=== PATIENT | male | born 1995 | race Caucasian/White ===

== ENCOUNTER 2019-08-08 16:37 | Observation (INO) ==
--- NOTE | 2019-08-08 16:57 | XRay Report ---
CLINICAL INFORMATION:Dyspnea TECHNIQUE: PA and lateral upright chest x-ray COMPARISON: None FINDINGS:Lungs are negative. No parenchymal infiltrate or mass. No focal abnormality. Heart size and vascularity are normal. Erica and mediastinum are negative. There is no pleural fluid. Thoracic spine is negative. No compression deformities. IMPRESSION: Negative PA and lateral chest x-ray Interpreted and Authenticated by: Neo Regan 08/08/19
--- NOTE | 2019-08-08 17:14 | Emergency Department Note ---
General Adult HPI - General Chief complaint: Shortness of Breath/Dyspnea Stated complaint: SOB Time Seen by Provider: 08/08/19 16:58 Source: patient, family Mode of arrival: wheelchair Limitations: no limitations - History of Present Illness HPI Narrative: 24-year-old with feeling short of breath and pain in the diaphragm area. He felt lightheaded. He is feeling tingling in his fingertips and face it seems to be escalating and going up his face towards his eyes. He does not feel stressed out or anxious. He has not felt well today and even did not go to work because he did not feel well. He had nausea earlier but some less now. He feels a tigh tness in the low chest. No paresthesias of the lower extremities. No history of motor vehicle accidents. He has had some lower thoracic left-sided pain that is been longer in all day now worsening. It does seem to occur about the same time as his abdomen although is not particularly certain of this. This is a little different and his history of right-sided back pain that was a little higher. He has felt some hot chills and sweats today but no fevers. REVIEW OF SYSTEMS: No sore throat, runny nose, nasal congestion, chest pain. May be a few palpitations when his pain is increasing. No cough or wheezing but feels short of breath with the pain. No vomiting, diarrhea, constipation, hematochezia, melena No dysuria or frequency No rashes No headache. Feels generally weak in his torso. Some mild lightheadedness dizziness as well. - Related Data Home Medications Medication Instructions Recorded Confirmed Dextroamphetamine/Amphetamine 20 mg PO BID 08/08/19 08/08/19 [Adderall 20 mg Tablet] Allergies Allergy/AdvReac Type Severity Reaction Status Date / Time No Known Drug Allergies Allergy Verified 08/08/19 16:37 Past Medical History - Past Medical History Medical history: Reports: other (DENIES: scarlet fever, Rheumatic fever). Denies: asthma, chronic anticoagulation, chronic narcotics, hypertension, hyp othyroidism, migraine, pneumonia, seizures Psychiatric history: Denies: depression Surgical history ED: Reports: orthopedic, other (Right ankle due to spinal fracture requiring a plate for repair) Family history: Denies: CAD/AL, diabetes - Social History smoking status: Current every day smoker (Half pack per day) Alcohol use: Reports: Occasionally (Few per week) Drug use: Reports: none, marijuana (Once a week) Physical Exam Limitations: no limitations General appearance: alert, anxious (Seemed quite anxious and panting breathing initially.), in distress, tearful (Initially) Head: atraumatic, normocephalic Eye: Present: EOMI ENT: Present: mucous membranes moist Neck: Present: trachea midline Chest: Present: symmetric chest wall rise Respiratory: Present: normal lung sounds bilaterally. Absent: respiratory dis tress, wheezes, stridor, accessory muscle use, prolonged expiratory phase Cardiovascular: Present: regular rate, normal rhythm. Absent: systolic murmur, diastolic murmur Abdominal: Present: soft, tenderness, guarding. Absent: distention, rebound, r igidity, organomegaly, mass Abdominal tenderness: Present: RUQ, LLQ, epigastrium, moderate, other (Some mild discomfort in the mid and lower left abdomen) Extremities: Absent: pedal edema, pretibial edema, calf tenderness Back: Absent: CVA tenderness (R), CVA tenderness (L), spinous process tenderness Neurological: Present: alert, oriented X3 Psychiatric: Present: normal affect, normal mood Skin: Present: diaphoretic Course Vital Signs Temperature 96.9 F L 08/08/19 16:38 Pulse Rate 70 08/08/19 16:38 Respiratory Rate 22 08/08/19 16:38 Blood Pressure 177/95 08/08/19 16:38 Pulse Oximetry (%) 100 08/08/19 16:38 Temperature 96.9 F L 08/08/19 16:38 Pulse Rate 55 L 08/08/19 17:42 Respiratory Rate 22 08/08/19 17:06 Blood Pressure 177/95 08/08/19 16:38 Pulse Oximetry (%) 96 08/08/19 17:42 Medical Decision Making - [facility] Narrative Medical decision making narrative: 4:58 PM - interviewed and examined. Diaphoretic back pain upper abdominal pain with some paresthesias. He may have gallbladder disease with hyperventilation or other. EKG unremarkable. Multiple labs and ultrasound abdomen limited and 2 view chest. 5:47 PM - preliminary gallbladder/abdominal ultrasound demonstrates a stone 1.4 cm low in the gallbladder neck. Gallbladder wall is mildly thickened. There is some fluid around the gallbladder. Varner sign however was negative. 6:04 PM - WBC 12.2, calcium mildly elevated at 10.9. Liver function test mildly elevated at 41 and 65 for the AST and ALT. CRP normal at less than 0.3. Lipase 27 total protein is 8.6. 6:13 PM - I just finished talking with Dr. Shane Levin, general surgeon who agrees that this most likely is gallbladder and will see him either later today or first thing in the morning. We will write admission orders for n.p.o. after midnight, pain control, IV fluids, Zosyn for antibiotic coverage. 6:25 PM - chest x-ray is negative. I recently spoke with Dr. Shane Levin, general surgeon, who kindly accepts this patient for general surgical care for presumptive diagnosis of acute cholecystitis. Transition orders for above written for. - Lab Data Lab results reviewed: Yes I reviewed the patient's lab results. Result diagrams: 08/08/19 16:49 08/08/19 16:49 Lab Results 08/08/19 08/08/19 08/08/19 Range/Units 16:49 16:49 16:49 WBC 12.1 H (4.5-11.0) K/mcL RBC 5.54 (4.50-5.90) M/mcL Hgb 17.7 H (13.5-16.5) g/dL Hct 51.1 (41.0-55.0) % MCV 92.1 (80.0-100.0) fL MCH 31.9 (26.0-34.0) pg MCHC 34.7 (31.0-36.0) g/dL RDW 12.9 (11.5-14.5) % Plt Count 305 (140-440) K/mcL MPV 7.6 (7.4-10.4) fL Gran % 76.0 (38.0-78.0) % Lymph % (Auto) 13.9 L (15.5-49.0) % Weston % (Auto) 5.8 (1.0-12.0) % Eos % (Auto) 4.1 (0.0-7.0) % Baso % (Auto) 0.2 (0.0-2.0) % Gran # 9.2 H (1.8-8.0) K/mcL Lymph # (Auto) 1.7 (1.5-4.8) K/mcL Weston # (Auto) 0.7 (0.1-0.9) K/mcL Eos # (Auto) 0.5 (0.0-0.7) K/mcL Baso # (Auto) 0 (0.0-0.3) K/mcL VBG Lactic Acid (0.5-2.0) mmol/L Sodium 139 (133-145) mmol/L Potassium 3.4 (3.3-5.1) mmol/L Chloride 97 (96-108) mmol/L Carbon Dioxide 22 (22-30) mmol/L Anion Gap 20.0 H (8-16) BUN 9 (6-20) mg/dl Creatinine 0.8 (0.7-1.2) mg/dl GFR Calculation 123 Glucose 122 H (70-105) mg/dL Calcium 10.9 H (8.6-10.4) mg/dl Total Bilirubin 0.9 (0.0-1.0) mg/dL AST 41 H (0-37) U/l ALT 65 H (0-40) U/l Alkaline Phosphatase 96 (39-117) U/L C-Reactive Protein < 0.3 (0.0-0.8) mg/dl Total Protein 8.6 H (5.9-8.4) gm/dL Albumin 5.2 (3.2-5.2) gm/dL Globulin 3.4 (2.2-3.7) gm/dL Albumin/Globulin Ratio 1.5 (1.0-2.3) Lipase 27 (7-60) U/L 08/08/19 Range/Units 17:28 WBC (4.5-11.0) K/mcL RBC (4.50-5.90) M/mcL Hgb (13.5-16.5) g/dL Hct (41.0-55.0) % MCV (80.0-100.0) fL MCH (26.0-34.0) pg MCHC (31.0-36.0) g/dL RDW (11.5-14.5) % Plt Count (140-440) K/mcL MPV (7.4-10.4) fL Gran % (38.0-78.0) % Lymph % (Auto) (15.5-49.0) % Weston % (Auto) (1.0-12.0) % Eos % (Auto) (0.0-7.0) % Baso % (Auto) (0.0-2.0) % Gran # (1.8-8.0) K/mcL Lymph # (Auto) (1.5-4.8) K/mcL Weston # (Auto) (0.1-0.9) K/mcL Eos # (Auto) (0.0-0.7) K/mcL Baso # (Auto) (0.0-0.3) K/mcL VBG Lactic Acid 2.8 H (0.5-2.0) mmol/L Sodium (133-145) mmol/L Potassium (3.3-5.1) mmol/L Chloride (96-108) mmol/L Carbon Dioxide (22-30) mmol/L Anion Gap (8-16) BUN (6-20) mg/dl Creatinine (0.7-1.2) mg/dl GFR Calculation Glucose (70-105) mg/dL Calcium (8.6-10.4) mg/dl Total Bilirubin (0.0-1.0) mg/dL AST (0-37) U/l ALT (0-40) U/l Alkaline Phosphatase (39-117) U/L C-Reactive Protein (0.0-0.8) mg/dl Total Protein (5.9-8.4) gm/dL Albumin (3.2-5.2) gm/dL Globulin (2.2-3.7) gm/dL Albumin/Globulin Ratio (1.0-2.3) Lipase (7-60) U/L - Radiology Data Radiology results reviewed: Yes I reviewed the patient's radiology results. Disposition Pt seen by DIRECTOR TARGETED MARKETING/PA only: No Clinical Impression: Acute cholecystitis, Elevated LFTs Cholelithiases Qualifiers: Cholelithiasis location: gallbladder Cholecystitis presence: with cholecystitis Cholecystitis acuity: acute Biliary obstruction: without biliary obstruction Qualified Code(s): K80.00 - Calculus of gallbladder with acute cholecystitis without obstruction Summary: See "MEDICAL DECISION MAKING" above. Disposition: Xfer As Outpt/Obs ([facility]) Condition: Good Referrals: Sukhjinder Garcia DO [Primary Care Provider] -
[2019-08-08 17:15] LABS: Basophils # (Auto) 0 K/mcL (0.0-0.3); Basophils % (Auto) 0.2 % (0.0-2.0); Eosinophils # (Auto) 0.5 K/mcL (0.0-0.7); Eosinophils % (Auto) 4.1 % (0.0-7.0); Hematocrit 51.1 % (41.0-55.0); Hemoglobin 17.7 g/dL (13.5-16.5); Lymphocytes # (Auto) 1.7 K/mcL (1.5-4.8); Lymphocytes % (Auto) 13.9 % (15.5-49.0); Mean Cell Volume 92.1 fL (80.0-100.0); Mean Corpuscular HGB Conc 34.7 g/dL (31.0-36.0); Mean Platelet Volume 7.6 fL (7.4-10.4); Monocytes # (Auto) 0.7 K/mcL (0.1-0.9); Monocytes % (Auto) 5.8 % (1.0-12.0); Platelet Count 305 K/mcL (140-440); RBC 5.54 M/mcL (4.50-5.90); Red Cell Distribution Width 12.9 % (11.5-14.5); WBC 12.1 K/mcL (4.5-11.0)
[2019-08-08] MEDS ORDERED: LACTATED RINGERS 1,000 ML IV ONE (17:28)
[2019-08-08 17:38] LABS: ALT/SGPT 65 U/l (0-40); AST/SGOT 41 U/l (0-37); Albumin 5.2 gm/dL (3.2-5.2); Albumin/Globulin Ratio 1.5 (1.0-2.3); Alkaline Phosphatase 96 U/L (39-117); Bilirubin,Total 0.9 mg/dL (0.0-1.0); Blood Urea Nitrogen 9 mg/dl (6-20); Calcium 10.9 mg/dl (8.6-10.4); Carbon Dioxide 22 mmol/L (22-30); Chloride 97 mmol/L (96-108); Globulin 3.4 gm/dL (2.2-3.7); Glomerular Filtration Rate 123; Glucose 122 mg/dL (70-105)
[2019-08-08 17:46] LABS: C-Reactive Protein < 0.3 mg/dl (0.0-0.8)
--- NOTE | 2019-08-08 18:05 | Ultrasound Report ---
CLINICAL INFORMATION: Upper abdominal pain TECHNIQUE: Grayscale and color flow Doppler spectral imaging COMPARISON: None. FINDINGS: Abnormal gallbladder. There is a stone within the gallbladder neck. This appears to be impacted and does not move with changes in position. This calculus measures 1.1 cm. No other gallstones identified. Gallbladder wall measures 4 mm. There is minimal pericholecystic fluid. Appearance is consistent with impacted stone cholecystitis. Patient did not, however, seen tender when scanned over the gallbladder lumen. There is no positive Varner's sign. No dilated bile ducts. Common bile duct measures 4 mm. Negative liver. No focal intrahepatic abnormality. Liver contour is smooth. Visualized portions of the pancreas are negative. Right kidney measures 11.8 x 5.0 x 4.7 cm. No solid or cystic mass. No hydronephrosis IMPRESSION: 1. Findings consistent with 11 mm calculus impacted in the gallbladder neck. This does not move with changes in position 2. Mild gallbladder wall thickening and pericholecystic fluid. No positive Varner sign Interpreted and Authenticated by: Neo Regan 08/08/19
[2019-08-08] MEDS ORDERED: ONDANSETRON 4 MG/2 ML VIAL IV PRN (18:18)
[2019-08-08] MEDS ORDERED: HYDROmorphone 2 MG/ML VIAL IV PRN (18:29)
[2019-08-08] MEDS: LACTATED RINGERS 1,000 ML IV SCH ×2 (19:09→22:25)
[2019-08-08] MEDS: PIPERACILLIN SODIUM/TAZOBACTAM 3.375 GM in DEXTROSE 5% IN WATER 50 ML IV SCH (19:53)
[2019-08-09] MEDS: PIPERACILLIN SODIUM/TAZOBACTAM 3.375 GM in DEXTROSE 5% IN WATER 50 ML IV SCH ×4 (00:03→17:53)
[2019-08-09] MEDS: LACTATED RINGERS 1,000 ML IV SCH ×4 (03:25→16:49)
[2019-08-09] MEDS ORDERED: SCOPOLAMINE 1 PATCH PATCH TOPICAL PRN (06:00)
[2019-08-09] MEDS ORDERED: IPRATROPIUM/ALBUTEROL 3 ML AMPUL.NEB NEB PRN ×2 (06:00→12:33)
[2019-08-09] MEDS ORDERED: NICOTINE 21 MG PATCH TOPICAL SCH (10:00)
--- NOTE | 2019-08-09 10:37 | General Surg History&Physical ---
History of Present Illness Patient information: Note initiated : 08/09/19 at 10:35 am Service Date, if different from initiated Date: [] Patient: Doyle Harvey 24 y/o M admitted on 08/08/19 for Shortness of breath. Chief Complaint: [] HPI: Mr. Harvey is a 24 year old M with acute cholecystitis. The patient developed very upper abdominal pain in his abdomen the yesterday about midday. Associated with the pain he had some increased anxiety and had some peripheral paresthesias associated with this. He later developed nausea and some back pain and became lightheaded. He was brought to the emergency room was noted that he was afebrile with normal white count but ultrasound showed a gallstone impacted in the neck of the gallbladder with thickened gallbladder wall and pericholecystic fluid. He had similar difficulties in the past which was usually associated with his morning meal which was greasy. He's had a noted increase in the number of diarrheal stools but attributed this to his diet. He was admitted and started on antibiotics last evening. He states that he feels better at this time. Review of his ultrasound confirms an impacted gallstone in the neck of his gallbladder and he is counseled for cholecystectomy later today. Review of Systems All systems PM: reviewed and no additional remarkable complaints except as stated (negative except as noted above) Past History Past medical history: Attention deficit hyperactivity disorder Past surgical history: OT IF right ankle fracture 2008 Past family history: Mother alive age 52 without illness Father alive age 54 with hypertension Past social history: Smokes 10 cigarettes per day Drinks at least 2 beers per week He uses marijuana weekly Medications and Allergies Home Medications Medication Instructions Recorded Confirmed Type Dextroamphetamine/Amphetamine 20 mg PO BID 08/08/19 08/08/19 History [Adderall 20 mg Tablet] Allergies Allergy/AdvReac Type Severity Reaction Status Date / Time No Known Drug Allergies Allergy Verified 08/08/19 16:37 Exam Temp Pulse Resp BP Pulse Ox 97.6 F 69 16 131/88 99 08/09/19 08:26 08/09/19 08:26 08/09/19 08:26 08/09/19 08:26 08/09/19 08:26 - General physical appearance well developed, well nourished, no distress - Eyes PERRL, normal ocular movement - ENT normal pinna, normal nares, normal mucosa, no hearing loss, no congestion - Head Head exam IM: Present: atraumatic, normocephalic - Neck no masses, no bruits, trachea midline, no lymphadenopathy, no venous distension - Cardiovascular Cardiovascular exam IM: Present: normal rate and rhythm - Respiratory normal expansion, normal respiratory effort, clear to percussion, clear to auscultation - Abdomen Abdomen: Present: soft, non tender (no tenderness in right subcostal or lateral abdomen; no epigastric tenderness), bowel sounds Hernia: Present: none - Genitourinary Present: normal penis with no external lesions - Integumentary Present: no rash, no growths, no abnormal pigmentation - Neurologic Present: normal coordination, normal sensation - Musculoskeletal Present: normal gait, normal posture - Psychiatric Present: oriented to time, oriented to person, oriented to place, speech is normal, memory intact Assessment and Plan (1) Cholelithiasis and acute cholecystitis without obstruction Patient will be continued on antibiotics and will have laparoscopic cholecystectomy later today Status: Acute
[2019-08-09] MEDS ORDERED: ONDANSETRON 4 MG/2 ML VIAL IV PRN ×2 (12:33→14:48)
[2019-08-09] MEDS ORDERED: MEPERIDINE 25 MG/ML SYRINGE IV PRN (12:33)
[2019-08-09] MEDS ORDERED: MEPERIDINE 50 MG/ML INJECTION IM PRN (12:33)
[2019-08-09] MEDS ORDERED: fentaNYL 100 MCG/2 ML VIAL IV PRN (12:33)
[2019-08-09] MEDS ORDERED: PROMETHAZINE 25 MG/ML VIAL IM PRN (12:33)
[2019-08-09] MEDS ORDERED: ACETAMINOPHEN 1,000 MG/100 ML BOTTLE IV ONE (12:33)
[2019-08-09] MEDS ORDERED: ROCURONIUM 10 MG/ML ML IV ONE (12:45)
[2019-08-09] MEDS ORDERED: DEXAMETHASONE 10 MG/ML VIAL IV ONE (12:45)
[2019-08-09] MEDS ORDERED: GLYCOPYRROLATE 0.2 MG/ML VIAL IV ONE (12:45)
[2019-08-09] MEDS ORDERED: METOPROLOL TARTRATE 5 MG/5 ML VIAL IV ONE ×3 (12:45→14:29)
[2019-08-09] MEDS ORDERED: LIDOCAINE HCL/PF 100 MG/5 ML SYRINGE IV ONE (12:45)
[2019-08-09] MEDS ORDERED: ONDANSETRON 4 MG/2 ML VIAL IV ONE (12:45)
[2019-08-09] MEDS ORDERED: PROPOFOL 200 MG/20 ML VIAL IV ONE (12:45)
[2019-08-09] MEDS ORDERED: LACTATED RINGERS 1,000 ML IV SCH (12:45)
[2019-08-09] MEDS ORDERED: fentaNYL 250 MCG/5 ML VIAL IV ONE (12:45)
[2019-08-09] MEDS ORDERED: SUGAMMADEX SODIUM 200 MG/2 ML VIAL IV ONE (12:45)
[2019-08-09] MEDS ORDERED: KETOROLAC 60 MG/2 ML VIAL IM ONE (12:45)
--- NOTE | 2019-08-09 14:03 | Brief Operative Note ---
Date of procedure: 08/09/19 Pre-op diagnosis: acute cholecystitis with cholelithiasis Post-op diagnosis: other (acute cholecystitis with cholelithiasis) Procedure: laparoscopic cholecystectomy Grafts/Implants: No Anesthesia: GETA Findings: edematous gallbladder with stone obstructing cystic duct Complications: none Surgeon: Joy Levin Specimens Removed/Pathology: other (gallbladder) Disposition: PACU
[2019-08-09] MEDS ORDERED: PROMETHAZINE 25 MG/ML VIAL IV PRN (14:48)
[2019-08-09] MEDS ORDERED: ACETAMINOPHEN 1,000 MG in PREMIX 1 BAG IV SCH (14:48)
[2019-08-09] MEDS: HYDROmorphone 2 MG/ML VIAL IV PRN ×2 (16:00→23:36)
[2019-08-09] MEDS: NICOTINE 21 MG PATCH TOPICAL SCH (20:27)
[2019-08-09] MEDS: ACETAMINOPHEN 1,000 MG/100 ML BOTTLE IV SCH (20:28)
[2019-08-10] MEDS: PIPERACILLIN SODIUM/TAZOBACTAM 3.375 GM in DEXTROSE 5% IN WATER 50 ML IV SCH ×3 (00:10→13:08)
[2019-08-10] MEDS: ACETAMINOPHEN 1,000 MG/100 ML BOTTLE IV SCH ×3 (02:10→14:12)
[2019-08-10] MEDS: LACTATED RINGERS 1,000 ML IV SCH ×2 (02:11→11:57)
[2019-08-10 06:26] LABS: Basophils # (Auto) 0 K/mcL (0.0-0.3); Basophils % (Auto) 0.1 % (0.0-2.0); Eosinophils # (Auto) 0 K/mcL (0.0-0.7); Eosinophils % (Auto) 0.2 % (0.0-7.0); Hematocrit 39.6 % (41.0-55.0); Hemoglobin 13.5 g/dL (13.5-16.5); Lymphocytes # (Auto) 1.1 K/mcL (1.5-4.8); Lymphocytes % (Auto) 8.2 % (15.5-49.0); Mean Cell Volume 93.3 fL (80.0-100.0); Mean Corpuscular HGB Conc 34.1 g/dL (31.0-36.0); Mean Platelet Volume 7.8 fL (7.4-10.4); Monocytes # (Auto) 0.7 K/mcL (0.1-0.9); Monocytes % (Auto) 5.5 % (1.0-12.0); Platelet Count 238 K/mcL (140-440); RBC 4.25 M/mcL (4.50-5.90); Red Cell Distribution Width 12.6 % (11.5-14.5); WBC 13.1 K/mcL (4.5-11.0)
[2019-08-10 06:36] LABS: ALT/SGPT 43 U/l (0-40); AST/SGOT 39 U/l (0-37); Albumin 3.7 gm/dL (3.2-5.2); Alkaline Phosphatase 58 U/L (39-117); Bilirubin,Direct < 0.2 mg/dL (0.0-0.3); Bilirubin,Total 0.5 mg/dL (0.0-1.0); Carbon Dioxide 25 mmol/L (22-30); Chloride 104 mmol/L (96-108); Glomerular Filtration Rate 130; Glucose 120 mg/dL (70-105); Lactate Dehydrogenase 182 U/L (94-250); Phosphorous 4.5 mg/dL (2.7-4.5); Triglycerides 73 mg/dl (<150); Uric Acid 3.4 mg/dL (2.5-8.0)
[2019-08-10 06:45] LABS: Albumin/Globulin Ratio 1.6 (1.0-2.3); Blood Urea Nitrogen 5 mg/dl (6-20); Calcium 8.4 mg/dl (8.6-10.4); Globulin 2.3 gm/dL (2.2-3.7)
[2019-08-10] MEDS: HYDROmorphone 2 MG/ML VIAL IV PRN ×2 (07:37→11:29)
[2019-08-10] MEDS ORDERED: FLU VACC QS2019-20(6MOS UP)/PF 60 MCG/0.5 ML SYRINGE IM ONE (10:00)
[2019-08-10] MEDS: NICOTINE 21 MG PATCH TOPICAL SCH (11:28)
--- NOTE | 2019-08-10 14:23 | Discharge Summary ---
Providers - Providers Patient information: Note initiated : 08/10/19 at 2:20 pm Service Date, if different from initiated Date: [] Patient: Doyle Harvey 24 y/o M admitted on 08/08/19 for Shortness of breath. Chief Complaint: [] Date of admission: 08/08/19 Discharge date: 08/10/19 Attending physician: Joy Levin Hospitalization Hospital Course: 24-YEAR-OLD MALE admitted with upper abdominal pain nausea. He had mild elevation in his LFTs. Ultrasound showed gallstone obstructing the neck of the gallbladder with edematous wall of the gallbladder with pericholecystic fluid. On 09 August a laparoscopic cholecystectomy was done with finding of an obstructing stone in the distal gallbladder with edema of the gallbladder wall. No other abnormalities noted. He had an uneventful perioperative course and is discharged in stable satisfactory condition. Discharge diagnosis: acute cholecystitis with cholelithiasis Reason for admission: abdominal pain and gallstone disease Procedures: Laparoscopic cholecystectomy Pertinent studies/significant findings: Upper abdominal ultrasound Complications: None Exam Temp Pulse Resp BP Pulse Ox 98.1 F 63 18 143/98 99 08/10/19 13:45 08/10/19 13:45 08/10/19 13:45 08/10/19 13:45 08/10/19 13:45 - General physical appearance well developed, well nourished, no distress - Eyes PERRL, normal ocular movement - ENT normal pinna, normal nares, normal mucosa, no hearing loss, no congestion - Head Head exam IM: Present: atraumatic, normocephalic - Neck no masses, no bruits, trachea midline, no lymphadenopathy, no venous distension - Cardiovascular Cardiovascular exam IM: Present: normal rate and rhythm - Respiratory normal expansion, normal respiratory effort, clear to percussion, clear to auscultation - Abdomen Abdomen: Present: soft, tender (mild tenderness around port sites otherwise unremarkable), bowel sounds Hernia: Present: none - Genitourinary Present: normal penis with no external lesions - Integumentary Present: no rash, no growths, no abnormal pigmentation - Neurologic Present: normal coordination, normal sensation - Musculoskeletal Present: normal gait, normal posture - Psychiatric Present: oriented to time, oriented to person, oriented to place, speech is normal, memory intact Discharge Plan - Patient/Caregiver Discharge Instructions Activity: increase activity as tolerated, other ( no lifting over 25 pounds. The next 2 weeks) Diet: Low Fat Additional Instructions: Contact the office for an appointment on 21 August 2019 Prescriptions: oxyCODONE HCL/ACETAMINOPHEN [Endocet 10-325 mg Tablet] 1 each PO Q4HP PRN #30 tab PRN Reason: Pain Level > 6 Prescription Printed Levofloxacin [Levaquin] 750 mg PO DAILY #7 tab Transmission Status: Pending to [facility] - Follow up Plan Follow up with: Sukhjinder Garcia DO [Primary Care Provider] - Disposition: Home, Self-Care Prognosis: Good Rehab Potential: Good I certify that the patient requires SNF services.: No Overall status at discharge: patient is progressing back to baseline Pending Studies Resuscitation Status Full Code Diet Full Liquid Diet Start Sat Aug 09 1448 Hydromorphone HCl (Dilaudid) 1 mg IV Q2HP PRN; Protocol PRN Reason: Per Pain Protocol Last Admin: 08/10/19 11:29 Dose: 1 mg Documented by: Admin: 08/10/19 07:37 Dose: 1 mg Documented by: Admin: 08/09/19 23:36 Dose: 1 mg Documented by: Admin: 08/09/19 16:00 Dose: 1 mg Documented by: FIORDALIZA Lactated Ringer's (Lactated Ringers) 1,000 mls @ 100 mls/hr IV .Q10H [facility] Last Admin: 08/10/19 11:57 Dose: Not Given Documented by: Infusion: 08/10/19 11:54 Dose: 100 mls/hr Documented by: Admin: 08/10/19 02:11 Dose: Not Given Documented by: Admin: 08/09/19 16:49 Dose: 100 mls/hr Documented by: FIORDALIZA Piperacillin Sod/Tazobactam (Sod 3.375 gm/ Dextrose) 50 mls @ 100 mls/hr IV Q6H [facility]; Protocol Last Infusion: 08/10/19 14:13 Dose: 0 mls/hr Documented by: Admin: 08/10/19 13:08 Dose: 100 mls/hr Documented by: Infusion: 08/10/19 06:40 Dose: 0 mls/hr Documented by: Admin: 08/10/19 06:09 Dose: 100 mls/hr Documented by: Infusion: 08/10/19 00:40 Dose: 100 mls/hr Documented by: Admin: 08/10/19 00:10 Dose: 100 mls/hr Documented by: Infusion: 08/09/19 17:54 Dose: 0 mls/hr Documented by: Admin: 08/09/19 17:53 Dose: 100 mls/hr Documented by: FIORDALIZA Nicotine (Nicoderm) 21 mg TOPICAL DAILY@1000 [facility] Last Admin: 08/10/19 11:28 Dose: 21 mg Documented by: Admin: 08/09/19 20:27 Dose: 21 mg Documented by: TEO Shift Summary 08/09/19 23:46 Shift Summary by Katharine Gerardo The patient is alert and oriented times four, he had family in to visit and has an adequate support system. He is post op for a 11 mm gallstone removal, he has rodolfo with Tegaderm to 3 lap sites on his abdomen with a scant amount of bloody drainage and were changed once. He is on RA, VSS thus far this shift, up to void via urinal in the restroom and has ambulated in the hallways 900 feet. Medicated once for pain with Dilaudid 1 mg at 2330 and is receiving scheduled Ofirmev and Zosyn. He has denied nausea this shift and tolerated a full liquid diet intake well. Initialized on 08/09/19 23:46 - END OF NOTE
--- NOTE | 2019-08-12 11:22 | Surgical Pathology Report ---
HISTOLOGY SPECIMEN MICROSCOPIC DIAGNOSIS GALLBLADDER, CHOLECYSTECTOMY: -- ACUTE AND CHRONIC CHOLECYSTITIS WITH CHOLELITHIASIS. (ELVA:kristy) PROCEDURAL IMPRESSION Acute cholecystitis. GROSS DESCRIPTION Received in formalin labeled gallbladder, is a 7.1 x 2.6 x 1.8 cm purple-suarez gallbladder. Three metal clamps are present and none of which are on the cystic duct. The mucosa is velvety pink-suarez with no lesions or masses identified and the hussein are 0.3 cm thick. Within the gallbladder specimen there is a 1.2 cm in greatest dimension round rough surfaced stone present. Along with the stone, the contents of the gallbladder has a norman-suarez gelatinous consistency. Emergency Operator sections including a portion of the gelatinous material is submitted in one cassette. (KGW:kristy) Electronically Signed by: Nico Pak M.D.
--- NOTE | 2019-08-18 16:35 | Operative Note ---
DATE OF OPERATION: 08/09/2019 PREOPERATIVE DIAGNOSIS: Acute cholecystitis with cholelithiasis. POSTOPERATIVE DIAGNOSIS: Acute cholecystitis with cholelithiasis. PROCEDURE: Laparoscopic cholecystectomy. SURGEON: Joy Levin M.D. FINDINGS: Edematous gallbladder with stone obstructing the cystic duct. DESCRIPTION OF PROCEDURE: Under general anesthesia, the patient's abdomen was prepped and draped in a sterile field. Supraumbilical incision was made and Veress needle was inserted uneventfully. The abdomen was insufflated with 2.5 liters of CO2. A 12 mm port was placed uneventfully. Laparoscope was placed. An acutely edematous gallbladder with thickened wall and a stone obstructing the neck of the gallbladder was encountered. The gallbladder was grasped and positioned. Adhesions to the infundibulum were dissected and the cystic duct was encountered. It was dissected down to the common bile duct and then up to the edge of the gallbladder. The gallstone was tightly wedged and could not be removed. The gallbladder was grasped above the stone and the gallbladder was placed on stretch. A cystic artery branch was dissected. The cystic artery branch crossed the cystic duct, so it was clipped with four clips and divided. This allowed me to get more tension on the cystic duct and to verify its position. Cystic duct was clipped with five clips and divided close to the gallbladder. The gallbladder was then dissected from the hepatic bed using electrocautery without difficulty. It was placed in an Endopouch and retrieved. Hemostasis in the bed was achieved with electrocautery. More irrigation was carried out. There was no need for a drain. CO2 was allowed to escape from the abdomen and the ports were removed. Fascia at the umbilicus was closed with interrupted 0 Vicryl. Skin incisions were closed with rodolfo. The patient tolerated the procedure well. CO2 was allowed to escape from the abdomen and the ports were removed. Fascia at the umbilicus was closed with 0 Vicryl. Skin incisions were closed with rodolfo. Tegaderm dressings were placed. The patient was awakened, extubated, transferred to a bed, and taken to the postanesthetic care unit in satisfactory condition. [email or web address] Job ID: [id number] Doc ID: [id number] Joy Levin M.D.
== END 2019-08-10 15:47 | disposition home or self-care (01) ==
LOC: ED 16:37 → MEDSUR 16:37
PROVIDERS: ADMIT Family Medicine Adult Medicine; ATTEND Family Medicine Adult Medicine

== ENCOUNTER 2023-02-01 19:04 | Inpatient (IN) ==
[2023-02-01 19:20] LABS: POC Calcium, Ionized 1.23 (1.16-1.32); POC Creatinine 3.5 (0.6-1.2); POC Potassium 4.4 (3.3-5.1)
[2023-02-01] MEDS ORDERED: 0.9 % SODIUM CHLORIDE 1,000 ML IV ONE ×2 (19:22→20:19)
[2023-02-01] MEDS ORDERED: ONDANSETRON 4 MG/2 ML VIAL IV ONE (19:34)
--- NOTE | 2023-02-01 19:41 | Emergency Department Note ---
HPI General Chief complaint: Nausea/Vomiting/Diarrhea Stated complaint: nausea, vomiting Time Seen by Provider: 02/01/23 19:34 Source: patient Mode of arrival: wheelchair Limitations: no limitations History of Present Illness HPI Narrative: Narrative: 27-year-old male presents to the emergency department complaining of nausea, vomiting, and muscle cramps. His symptoms began about 1:00 today. He has vomited 4 times since then. He is unable to keep fluids down. He has not been able to eat since then. He states that he is feeling nauseated and having some abdominal pain. The pain is over the entire abdomen. He describes it as a hunger pain. Patient states that the first time he vomited there was some red in the vomit that he thought was blood. He has not had any blood since that time. He has not had any coffee-ground emesis. His last bowel movement was yesterday. It was formed and normal. He is only urinated twice today. Both times it was just a small amount. It was light yellow in color. Patient has been getting muscle cramps in his legs, feet, and abdomen, and back. Patient believes that his symptoms may be a result of working outside. 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 He has been working hard in the heat for the past 2 days. He normally does not do physical labor like this. Related Data Home Medications Medication Instructions Recorded Confirmed No Known Home Meds 02/01/23 02/01/23 Allergies Allergy/AdvReac Type Severity Reaction Status Date / Time No Known Drug Allergies Allergy Verified 02/01/23 18:46 Review of Systems ROS ROS Narrative: Narrative: All systems ED: reviewed and negative except as stated. [facility] Narrative Patient History Narrative: Narrative: Medical/Surgical/Family History All Active Problems (Updated 02/01/23 @ 22:19 by Ashanti Alva PA-C) Acute kidney injury (Acute) Hypertension (Acute) Acute cholecystitis (Acute) Cholelithiases (Acute) Elevated LFTs (Acute) Cholelithiasis and acute cholecystitis without obstruction (Acute) Surgical History (Updated 08/21/19 @ 13:13 by Ryann Watson CMA) History of laparoscopic cholecystectomy 08/09/2019 History of open reduction and internal fixation (ORIF) procedure right ankle 2008 Family History (Updated 08/21/19 @ 13:13 by Ryann Watson CMA) Father Hypertension Social History Smoking Status: Current every day smoker Alcohol Intake Frequency: a few times a week Substance Use: marijuana Exam Narrative Narrative: Narrative: General Limitations: no limitations General appearance: Present alert, in no apparent distress and other (Patient is laying comfortably on the gurney. When asked to sit up he gets a severe cramp in his abdomen that takes about 30 seconds to resolve.) Head Head: Present atraumatic and normocephalic Eye Eye: Present normal appearance ENT ENT: Present mucous membranes dry Neck Neck: Absent lymphadenopathy Chest Chest: Present normal inspection Respiratory Respiratory: Present normal lung sounds bilaterally Cardiovascular Cardiovascular: Present regular rate and normal heart sounds Adbominal Abdominal: Present soft and tenderness (Left lower quadrant tenderness); Absent guarding or rebound Back Back: Present CVA tenderness (L) Neurological Neurological: Present alert and oriented X3 Skin Skin: Present warm (WNL) and dry Course Vital Signs Vital signs: Vital Signs Temperature 98.4 F 02/01/23 19:04 Pulse Rate 110 H 02/01/23 19:04 Respiratory Rate 17 02/01/23 19:04 Blood Pressure 159/120 02/01/23 19:04 Pulse Oximetry (%) 99 02/01/23 19:04 Oxygen Delivery Method Room Air 02/01/23 19:04 Temperature 98.4 F 02/01/23 19:04 Pulse Rate 97 H 02/01/23 21:31 Respiratory Rate 17 02/01/23 19:04 Blood Pressure 135/93 02/01/23 21:31 Pulse Oximetry (%) 95 02/01/23 21:31 Oxygen Delivery Method Room Air 02/01/23 19:04 [facility] Narrative Medical decision making narrative: Narrative: Differential includes gastroenteritis, electrolyte abnormality, diverticulitis, heat exhaustion. Patient is treated with IV fluids for hydration. He is treated with IV Zosyn for nausea and vomiting. Chem-8, CBC, hepatic function profile, and CT scan of the abdomen pelvis were ordered. CT scan is read by direct radiology. There is no colitis or bowel obstruction. No evidence of colitis. Normal appendix. No free fluid. No free air. Patient does have hepatic steatosis. CBC shows white count of 20.1, hemoglobin 20.3, hematocrit 54.1. BUN is 44, creatinine 3.5 Bilirubin 1.3, AST 97, ALT 114, alk phos 120. Urine is positive for ketones, 10 white cells per high-power field, saline casts, and mucus. Patient is feeling much better with fluids and Zosyn. He was able to eat in the emergency department. Patient does have acute kidney injury. I spoke with the hospitalist about admitting this patient. He wanted me to add a CPK, phosphorus, and magnesium to his labs. This was ordered. He also asked that I consult with the on-call caustic plant worker to be sure it is okay to keep the patient here. I spoke with nephrology, he states that the patient does not currently need dialysis and it is okay to admit him here. Lab Data 02/01/23 19:42 Labs: Lab Results 02/01/23 02/01/23 02/01/23 Range/Units 19:16 19:42 19:42 WBC 20.1 H (4.5-11.0) K/mcL RBC 6.40 H (4.63-6.08) M/mcL Hgb 20.3 H (13.7-17.5) g/dL Hct 54.1 H (40.1-51.0) % POC Hct 60.0 H (41-55) MCV 84.5 (80.0-100.0) fL MCH 31.7 (26.0-34.0) pg MCHC 37.5 H (31.0-36.0) g/dL RDW 12.3 (11.5-14.5) % Plt Count 367 (140-440) K/mcL MPV 10.1 (8.8-12.5) fL Immature Gran % (Auto) 0.9 H (0.0-0.5) % Neut % (Auto) 89.3 H (38.0-78.0) % Lymph % (Auto) 4.9 L (15.5-49.0) % [place] % (Auto) 4.5 (1.0-12.0) % Eos % (Auto) 0 (0.0-7.0) % Baso % (Auto) 0.4 (0.0-2.0) % Lymph # (Auto) 0.99 L (1.50-4.80) K/mcL [place] # (Auto) 0.91 H (0.10-0.90) K/mcL Eos # (Auto) 0.01 (0.00-0.70) K/mcL Baso # (Auto) 0.09 (0.00-0.30) K/mcL Immature Gran # 0.19 H (0.00-0.05) K/mcl Absolute Neutrophils 17.88 H (1.80-8.00) K/mcL POC Sodium 132 L (133-145) POC Potassium 4.4 (3.3-5.1) POC Chloride 97 (96-108) POC Total CO2 19.0 L (22-30) POC Anion Gap 22.0 H (8.0-16.0) POC BUN 44 H (6-20) POC Creatinine 3.5 H (0.6-1.2) POC Glucose 125 H (70-105) POC WB Ioniz Calcium 1.23 (1.16-1.32) Total Bilirubin 1.3 H (0.1-1.0) mg/dL Direct Bilirubin 0.3 H (<0.3) mg/dL AST 97 H (<40) U/L ALT 114 H (<40) U/L Alkaline Phosphatase 120 H (39-117) U/L Total Protein 10.2 H (5.9-8.4) gm/dL Albumin 6.0 H (3.2-5.2) gm/dL Globulin 4.2 H (2.2-3.7) gm/dL TSH (0.27-5.01) uIU/mL Urine Color Urine Appearance (Clear) Urine pH (5.0-9.0) Ur Specific [place] (1.000-1.035) Urine Protein (Negative) mg/dL Urine Glucose (UA) (Negative) mg/dL Urine Ketones (Negative) mg/dL Urine Occult Blood (Negative) mg/dL Urine Nitrate (Negative) Urine Bilirubin (Negative) mg/dL Urine Urobilinogen mg/dL Ur Leukocyte Esterase (Negative) /uL Urine RBC (0-3) /hpf Urine WBC (0-4) /hpf Ur Squamous Epith Cells (0-4) /hpf Urine Bacteria (0) /hpf Hyaline Casts (0-2) /lph Urine Mucus (None) /hpf Ur Culture Indicated? 02/01/23 02/01/23 Range/Units 19:42 20:58 WBC (4.5-11.0) K/mcL RBC (4.63-6.08) M/mcL Hgb (13.7-17.5) g/dL Hct (40.1-51.0) % POC Hct (41-55) MCV (80.0-100.0) fL MCH (26.0-34.0) pg MCHC (31.0-36.0) g/dL RDW (11.5-14.5) % Plt Count (140-440) K/mcL MPV (8.8-12.5) fL Immature Gran % (Auto) (0.0-0.5) % Neut % (Auto) (38.0-78.0) % Lymph % (Auto) (15.5-49.0) % [place] % (Auto) (1.0-12.0) % Eos % (Auto) (0.0-7.0) % Baso % (Auto) (0.0-2.0) % Lymph # (Auto) (1.50-4.80) K/mcL [place] # (Auto) (0.10-0.90) K/mcL Eos # (Auto) (0.00-0.70) K/mcL Baso # (Auto) (0.00-0.30) K/mcL Immature Gran # (0.00-0.05) K/mcl Absolute Neutrophils (1.80-8.00) K/mcL POC Sodium (133-145) POC Potassium (3.3-5.1) POC Chloride (96-108) POC Total CO2 (22-30) POC Anion Gap (8.0-16.0) POC BUN (6-20) POC Creatinine (0.6-1.2) POC Glucose (70-105) POC WB Ioniz Calcium (1.16-1.32) Total Bilirubin (0.1-1.0) mg/dL Direct Bilirubin (<0.3) mg/dL AST (<40) U/L ALT (<40) U/L Alkaline Phosphatase (39-117) U/L Total Protein (5.9-8.4) gm/dL Albumin (3.2-5.2) gm/dL Globulin (2.2-3.7) gm/dL TSH 4.79 (0.27-5.01) uIU/mL Urine Color Tia Urine Appearance Cloudy A (Clear) Urine pH 5.0 (5.0-9.0) Ur Specific [place] 1.019 (1.000-1.035) Urine Protein 100 A (Negative) mg/dL Urine Glucose (UA) Negative (Negative) mg/dL Urine Ketones 80 A (Negative) mg/dL Urine Occult Blood 0.20 (Negative) mg/dL Urine Nitrate Negative (Negative) Urine Bilirubin Negative (Negative) mg/dL Urine Urobilinogen Negative mg/dL Ur Leukocyte Esterase Negative (Negative) /uL Urine RBC 1 (0-3) /hpf Urine WBC 10 H (0-4) /hpf Ur Squamous Epith Cells 0 (0-4) /hpf Urine Bacteria None (0) /hpf Hyaline Casts 498 H (0-2) /lph Urine Mucus Many A (None) /hpf Ur Culture Indicated? 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
[2023-02-01 20:40] LABS: ALT/SGPT 114 U/L (<40); AST/SGOT 97 U/L (<40); Alkaline Phosphatase 120 U/L (39-117); Bilirubin,Direct 0.3 mg/dL (<0.3); Bilirubin,Total 1.3 mg/dL (0.1-1.0); Globulin 4.2 gm/dL (2.2-3.7)
[2023-02-01 20:50] LABS: Basophils # (Auto) 0.09 K/mcL (0.00-0.30); Basophils % (Auto) 0.4 % (0.0-2.0); Eosinophils # (Auto) 0.01 K/mcL (0.00-0.70); Eosinophils % (Auto) 0 % (0.0-7.0); Hematocrit 54.1 % (40.1-51.0); Hemoglobin 20.3 g/dL (13.7-17.5); Lymphocytes # (Auto) 0.99 K/mcL (1.50-4.80); Lymphocytes % (Auto) 4.9 % (15.5-49.0); Mean Cell Volume 84.5 fL (80.0-100.0); Mean Corpuscular HGB Conc 37.5 g/dL (31.0-36.0); Mean Platelet Volume 10.1 fL (8.8-12.5); Monocytes # (Auto) 0.91 K/mcL (0.10-0.90); Monocytes % (Auto) 4.5 % (1.0-12.0); Neutrophils % (Auto) 89.3 % (38.0-78.0); Platelet Count 367 K/mcL (140-440); Red Cell Distribution Width 12.3 % (11.5-14.5); WBC 20.1 K/mcL (4.5-11.0)
[2023-02-01 21:48] LABS: Appearance,Urine CLOUDY (Clear); Bilirubin,Urine Negative (Negative); Color,Urine AMBER; Culture Indicated,Urine yes; Glucose,Urine (UA) Negative (Negative); Ketones,Urine 80 mg/dL (Negative); Leukocyte Esterase,Urine Negative /uL (Negative); Mucus,Urine MANY /hpf; Nitrate,Urine Negative (Negative); Protein,Urine 100 mg/dL (Negative); Specific Gravity,Urine 1.019 (1.000-1.035); Urine Hyaline Cast 498 /lph (0-2); Urine RBC 1 /hpf (0-3); Urine Squamous Epithelial Cell 0 /hpf (0-4); Urine WBC 10 /hpf (0-4); Urobilinogen,Urine Negative
[2023-02-01] MEDS ORDERED: ONDANSETRON 4 MG/2 ML VIAL IV PRN (22:25)
[2023-02-01] MEDS ORDERED: ACETAMINOPHEN 325 MG TABLET PO PRN (22:30)
[2023-02-01 22:48] LABS: Phosphorous 6.1 mg/dL (2.5-4.5)
[2023-02-01] MEDS: 0.9 % SODIUM CHLORIDE 1,000 ML IV SCH (23:21)
--- NOTE | 2023-02-02 05:57 | Cat Scan Report ---
INDICATION: abdominal pain, N/V. COMPARISON: Previous ultrasound dated 08/08/2019 TECHNIQUE: Axial images were obtained through the abdomen and pelvis. Sagittally and coronally reformatted images. FINDINGS: Examination was initially interpreted by [facility] Lung bases:No pulmonary parenchymal density. No calcified or noncalcified nodule. No pleural or pericardial effusion Liver:Negative to the limits of noncontrast enhanced examination. Liver contour is smooth without evidence for cirrhosis. Liver may be mildly low density compared with the spleen. Hepatic steatosis is possible. Gallbladder, bilary:Previous cholecystectomy. No dilated bile ducts Spleen:No splenomegaly Pancreas:No pancreatic mass. No peripancreatic abnormality Adrenal glands:Negative Kidneys,ureters,bladder:No solid renal mass. No hydronephrosis. No obstructing or nonobstructing calculi. No hydroureter. No ureteral calculus. No bladder stone. No detectable bladder mass. Gastrointestinal:No detectable colonic mass. There is no diverticulitis. Negative small bowel. No mechanical small bowel obstruction. No bowel wall thickening. No focal abnormality. Negative stomach and duodenum. No focal abnormality. Appendix: The appendix is negative Vascular:No abdominal aortic aneurysm Lymphatic:No retroperitoneal adenopathy. No significant mesenteric adenopathy. Mesentery, peritoneum:No free intraperitoneal fluid. No intra-abdominal abscess. No pneumoperitoneum Reproductive:Prostate is not enlarged Musculoskeletal:No lumbar compression fractures. No lytic lesions. Sacrum, pelvis, hips are negative No anterior abdominal wall or inguinal hernia. IMPRESSION: 1. Previous cholecystectomy 2. Otherwise negative noncontrast enhanced CT scan The exam was performed using radiation dose optimization techniques including, but not limited to, automated exposure control, adjustment of the mA and/or kV according to patient size and use of iterative reconstruction technique. Interpreted and Authenticated by: Neo Regan 02/02/23
[2023-02-02] MEDS ORDERED: 0.9 % SODIUM CHLORIDE 10 ML SYRINGE IV SCH (06:00)
--- NOTE | 2023-02-02 06:35 | Nephrology Consult Note ---
HPI Date of Consult Consult Date: 02/02/23 Requesting physician: Fabián Rosado Primary Care Provider: Octavio Franks PA-C Consult Narrative Patient Information: Note initiated : 02/02/23 at 6:29 am Patient: Doyle Harvey 27 y/o M admitted on 02/01/23 for nausea, vomiting. Doyle Harvey is a 27-year-old male without significant past medical history admitted on 02/01/23. He presented to the emergency department for nausea, vomiting, abdominal pain and muscle cramps. The patient believes that his symptoms may be a result of working outside. He began a new job la [employer]. He has been working hard in the heat for the past 2 days. He normally does not do physical labor like this. He urinated a small amount twice which was light yellow in color. In ED, serum creatinine was 3.5. Other labs were WBC 20.1, hemoglobin 20.3, bilirubin 1.3, AST 97, ALT 114, ALP 120, CK 1547. Nephrology consultation was requested for acute kidney injury. Chief complaint: Nausea and vomiting Reason for consult: Acute kidney injury cc:: CC: Fabián Rosado Constitutional Constitutional: Present fatigue and weakness EENT Nose, mouth and throat: Absent nasal congestion or sore throat Cardiovascular Cardiovascular: Absent chest pain or palpatations Respiratory Respiratory: Absent dyspnea or wheezing Gastrointestinal Gastrointestinal: Present abdominal pain, nausea and vomiting Musculoskeletal Musculoskeletal: Present muscle cramps and myalgias Integumentary Integumentary: Absent rash or wounds Neurological Neurological: Absent confusion Psychiatric Psychiatric: Absent anxiety or panic attacks Hematologic/Lymphatic Hematologic/Lymphatic: Present easy bleeding and easy bruising Allergic/Immunologic Allergic/Immunologic: Absent tongue swelling or uticaria PFSH PFSH All Active Problems Acute kidney injury (Acute) Hypertension (Acute) Acute cholecystitis (Acute) Cholelithiases (Acute) Elevated LFTs (Acute) Cholelithiasis and acute cholecystitis without obstruction (Acute) Surgical History History of laparoscopic cholecystectomy 08/09/2019 History of open reduction and internal fixation (ORIF) procedure right ankle 2008 Family History Father Hypertension Social History smoking status: Current every day smoker smoking status start date: 02/01/11 alcohol intake frequency: a few times a week substance use type: marijuana MEDS/ALLERGIES Home Medications and Allergies Home Medications Medication Instructions Recorded Confirmed Type No Known Home Meds 02/01/23 02/02/23 History Allergies Allergy/AdvReac Type Severity Reaction Status Date / Time No Known Drug Allergies Allergy Verified 02/01/23 18:46 Physical Examination Vital Signs Vital signs: Temp Pulse Resp BP Pulse Ox O2 Del Method O2 Flow Rate 98.0 F 64 17 146/98 95 Room Air 0 02/02/23 04:01 02/02/23 06:01 02/02/23 06:01 02/02/23 06:01 02/02/23 06:01 02/02/23 06:01 02/01/23 23:31 General Appearance General appearance: well-developed, well-nourished and obese EENT EENT: mucous membranes moist Neck Neck: no JVD Respiratory Respiratory: clear Cardiovascular Cardiology: no edema, regular rate and regular rhythm Gastrointestinal Gastrointestinal: no tenderness Integumentary Integumentary: no rash Neurologic Neurologic: no focal deficit and alert and oriented x3 Musculoskeletal Musculoskeletal: no deformities Psychiatric Psychiatric: mood/affect appropriate and cooperative Results Lab Results 02/02/23 05:12 02/02/23 05:12 Lab results: Most recent lab results Phosphorus 6.1 mg/dL (2.5-4.5) H* 02/01/23 19:42 Magnesium 2.8 mg/dL (1.6-2.5) H 02/01/23 19:42 A/P Assessment and plan (1) Acute kidney injury: Assessment and plan: Doyle Harvey is a 27-year-old male without significant past medical history admitted on 02/01/23. He presented to the emergency department for nausea, vomiting, abdominal pain and muscle cramps. The patient believes that his symptoms may be a result of working outside. He began a new job l [employer]. He has been working hard in the heat for the past 2 days. He normally does not do physical labor like this. He urinated a small amount twice which was light yellow in color. In ED, serum creatinine was 3.5. Other labs were WBC 20.1, hemoglobin 20.3, bilirubin 1.3, AST 97, ALT 114, ALP 120, CK 1547. Nephrology consultation was requested for acute kidney injury. Acute kidney injury, suspected acute tubular necrosis with intravascular volume depletion with initial metabolic acidosis and hyponatremia, present on arrival, resolving. Work up: Urinalysis on 02/01/23: Tia, cloudy, pH 5.0, SG 1.019, protein 100, blood 0.2, leukocyte esterase negative. CT Abdomen and Pelvis without contrast on 02/01/23: No solid renal mass. No hydronephrosis. No obstructing or nonobstructing calculi. No hydroureter. No ureteral calculus. No bladder stone. No detectable bladder mass. Previous cho lecystectomy. Otherwise negative noncontrast enhanced CT scan. Progress: Serum creatinine changed from 3.5 (POC) to 1.1 in the past 12 hours. Baseline serum creatinine: 0.7 on 08/10/19. Urine output: 800 ml reported in the past 12 hours. Metabolic acidosis, resolved. Hyponatremia, resolved. No fluid overload. No uremic symptoms. Recommendations/Plan: SPEP/TIMOTHY ordered. Nephrology will sign off. Status: Acute Time Spent With Patient Time: Total time spent is greater than 50% in coordination of care (as documented) at patient's floor/unit and/or counseling patient:
[2023-02-02 06:38] LABS: Basophils # (Auto) 0.05 K/mcL (0.00-0.30); Basophils % (Auto) 0.4 % (0.0-2.0); Eosinophils # (Auto) 0.06 K/mcL (0.00-0.70); Eosinophils % (Auto) 0.5 % (0.0-7.0); Hematocrit 44.6 % (40.1-51.0); Lymphocytes # (Auto) 1.87 K/mcL (1.50-4.80); Lymphocytes % (Auto) 14.5 % (15.5-49.0); Mean Cell Volume 88.7 fL (80.0-100.0); Mean Corpuscular HGB Conc 35.9 g/dL (31.0-36.0); Mean Platelet Volume 9.6 fL (8.8-12.5); Monocytes # (Auto) 1.43 K/mcL (0.10-0.90); Monocytes % (Auto) 11.1 % (1.0-12.0); Neutrophils % (Auto) 73.1 % (38.0-78.0); Platelet Count 297 K/mcL (140-440); RBC 5.03 M/mcL (4.63-6.08); Red Cell Distribution Width 12.5 % (11.5-14.5); WBC 12.9 K/mcL (4.5-11.0)
[2023-02-02 07:09] LABS: Blood Urea Nitrogen 24 mg/dL (6-20); Calcium 9.3 mg/dL (8.6-10.4); Carbon Dioxide 20 mmol/L (22-30); Chloride 99 mmol/L (96-108); Glomerular Filtration Rate 90; Glucose 116 mg/dL (70-105)
[2023-02-02] MEDS ORDERED: MAGNESIUM SULFATE 2 GM/50 ML BAG IV PRN (07:53)
[2023-02-02] MEDS ORDERED: POLYETHYLENE GLYCOL 3350 17 GM PACKET PO PRN (07:53)
[2023-02-02] MEDS ORDERED: POTASSIUM CHLORIDE 40 MEQ in DEXTROSE 5% IN WATER 500 ML IV PRN (07:53)
[2023-02-02] MEDS ORDERED: POTASSIUM CHLORIDE 20 MEQ TABLET PO PRN (07:53)
[2023-02-02] MEDS ORDERED: SENNOSIDES 1 TABLET PO PRN (07:53)
--- NOTE | 2023-02-02 07:53 | Internal Med History&Physical ---
HPI History of Present Illness Patient information: Note initiated : 02/02/23 at 7:42 am Service Date, if different from initiated Date: [] Patient: Doyle Harvey 27 y/o M admitted on 02/01/23 for nausea, vomiting. Chief Complaint: [] History of present illness: Mr. Harvey is a 27 year old M Presents the ED with nausea vomiting and decreased urine output and muscle cramping since the day prior to admission. Came here from minor care. Patient unable to keep any fluids down for the past several days. 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 Also have some abdominal pain from the nausea vomiting. No bloody emesis. Work-up in the ED ED revealed acute kidney injury. Appeared to be dehydrated. CT imaging of the abdomen pelvis showed no acute pathology. He had a leukocy tosis of 20,000 without suspected to be reactive as there is no source of infection found. Creatinine was 3.4 and nephrology was consulted. Also had a mild metabolic acidosis. With anion gap. He had elevated phosphorus and magnesium. Transaminitis. Elevated CPK at 1547. Nausea better this morning. Pending follow-up labs including CPK. Review of Systems: Pertinent positives as above. Denies headache/fever/chills/chest pain/cough/dyspnea/diarrhea. Remaining 10 point review of system reviewed negative PHYSICAL EXAM General: Alert, Awake, No acute Distress Eyes/N/T: EOMI, no scleral icterus, PERRL, dry MM Head/Neck: neck supple, full ROM, normocephalic atraumatic CV: RRR, No murmurs, normal s1/s2 Pulm: Clear b/l, no wheezing/rhonchi/rales, no respiratory distress Abd: soft, nontender, +BS x4 Ext: no clubbing/cyanosis/edema, nontender Neuro: Alert, CN 2-12 grossly intact, no focal deficits, moves all extremities, , sensations intact b/l upper/lower Psychiatric: Skin: warm/dry, normal color PFSH PFSH All Active Problems Acute kidney injury (Acute) Hypertension (Acute) Acute cholecystitis (Acute) Cholelithiases (Acute) Elevated LFTs (Acute) Cholelithiasis and acute cholecystitis without obstruction (Acute) Surgical History History of laparoscopic cholecystectomy 08/09/2019 History of open reduction and internal fixation (ORIF) procedure right ankle 2009 Family History Father Hypertension Social History smoking status: Current every day smoker smoking status start date: 02/01/11 alcohol intake frequency: a few times a week substance use type: marijuana MEDS/ALLERGIES Home Medications and Allergies Home Medications Medication Instructions Recorded Confirmed Type No Known Home Meds 02/01/23 02/02/23 History Allergies Allergy/AdvReac Type Severity Reaction Status Date / Time No Known Drug Allergies Allergy Verified 02/01/23 18:46 EXAM Constitutional Vitals: Temp Pulse Resp BP Pulse Ox O2 Del Method O2 Flow Rate 98.0 F 64 17 146/98 95 Room Air 0 02/02/23 04:01 02/02/23 06:01 02/02/23 06:01 02/02/23 06:01 02/02/23 06:01 02/02/23 06:01 02/01/23 23:31 DATA Data Completed and Pending Labs: Labs from last 24 hours 02/02/23 02/02/23 02/02/23 06:42 06:42 05:12 WBC RBC Hgb Hct POC Hct MCV MCH MCHC RDW Plt Count MPV Immature Gran % (Auto) Neut % (Auto) Lymph % (Auto) [place] % (Auto) Eos % (Auto) Baso % (Auto) Lymph # (Auto) [place] # (Auto) Eos # (Auto) Baso # (Auto) Immature Gran # Absolute Neutrophils POC Sodium Sodium 134 POC Potassium Potassium 3.6 POC Chloride Chloride 99 Carbon Dioxide 20 L POC Total CO2 Anion Gap 15.0 POC Anion Gap POC BUN BUN 24 H Creatinine 1.1 POC Creatinine GFR Calculation 90 Glucose 116 H POC Glucose Calcium 9.3 POC WB Ioniz Calcium Phosphorus Magnesium Total Bilirubin Direct Bilirubin AST ALT Alkaline Phosphatase Total Creatine Kinase Total Protein Total Protein (PEP) Pending Albumin Albumin (PEP) Pending Globulin Globulin (PEP) Pending Albumin/Globulin (PEP) Pending Btqci-3-Xkxroywge Pending Dbald-7-Rjxzqyslm Pending Beta Globulins Pending Gamma Globulins Pending PEP Interpretation Pending TSH Urine Color Urine Appearance Urine pH Ur Specific [place] Urine Protein Urine Glucose (UA) Urine Ketones Urine Occult Blood Urine Nitrate Urine Bilirubin Urine Urobilinogen Ur Leukocyte Esterase Urine RBC Urine WBC Ur Squamous Epith Cells Urine Bacteria Hyaline Casts Urine Mucus Ur Culture Indicated? TIMOTHY Interpretation Pending 02/02/23 02/01/23 02/01/23 05:12 20:58 19:42 WBC 12.9 H RBC 5.03 Hgb 16.0 Hct 44.6 POC Hct MCV 88.7 MCH 31.8 MCHC 35.9 RDW 12.5 Plt Count 297 MPV 9.6 Immature Gran % (Auto) 0.4 Neut % (Auto) 73.1 Lymph % (Auto) 14.5 L [place] % (Auto) 11.1 Eos % (Auto) 0.5 Baso % (Auto) 0.4 Lymph # (Auto) 1.87 [place] # (Auto) 1.43 H Eos # (Auto) 0.06 Baso # (Auto) 0.05 Immature Gran # 0.05 Absolute Neutrophils 9.48 H POC Sodium Sodium POC Potassium Potassium POC Chloride Chloride Carbon Dioxide POC Total CO2 Anion Gap POC Anion Gap POC BUN BUN Creatinine POC Creatinine GFR Calculation Glucose POC Glucose Calcium POC WB Ioniz Calcium Phosphorus 6.1 H* Magnesium 2.8 H Total Bilirubin Direct Bilirubin AST ALT Alkaline Phosphatase Total Creatine Kinase 1547 H Total Protein Total Protein (PEP) Albumin Albumin (PEP) Globulin Globulin (PEP) Albumin/Globulin (PEP) Mrfgm-9-Pohnoqsba Qalbh-2-Sgsappnvy Beta Globulins Gamma Globulins PEP Interpretation TSH Urine Color Tia Urine Appearance Cloudy A Urine pH 5.0 Ur Specific [place] 1.019 Urine Protein 100 A Urine Glucose (UA) Negative Urine Ketones 80 A Urine Occult Blood 0.20 Urine Nitrate Negative Urine Bilirubin Negative Urine Urobilinogen Negative Ur Leukocyte Esterase Negative Urine RBC 1 Urine WBC 10 H Ur Squamous Epith Cells 0 Urine Bacteria None Hyaline Casts 498 H Urine Mucus Many A Ur Culture Indicated? yes TIMOTHY Interpretation 02/01/23 02/01/23 02/01/23 19:42 19:42 19:42 WBC 20.1 H RBC 6.40 H Hgb 20.3 H Hct 54.1 H POC Hct MCV 84.5 MCH 31.7 MCHC 37.5 H RDW 12.3 Plt Count 367 MPV 10.1 Immature Gran % (Auto) 0.9 H Neut % (Auto) 89.3 H Lymph % (Auto) 4.9 L [place] % (Auto) 4.5 Eos % (Auto) 0 Baso % (Auto) 0.4 Lymph # (Auto) 0.99 L [place] # (Auto) 0.91 H Eos # (Auto) 0.01 Baso # (Auto) 0.09 Immature Gran # 0.19 H Absolute Neutrophils 17.88 H POC Sodium Sodium POC Potassium Potassium POC Chloride Chloride Carbon Dioxide POC Total CO2 Anion Gap POC Anion Gap POC BUN BUN Creatinine POC Creatinine GFR Calculation Glucose POC Glucose Calcium POC WB Ioniz Calcium Phosphorus Magnesium Total Bilirubin 1.3 H Direct Bilirubin 0.3 H AST 97 H ALT 114 H Alkaline Phosphatase 120 H Total Creatine Kinase Total Protein 10.2 H Total Protein (PEP) Albumin 6.0 H Albumin (PEP) Globulin 4.2 H Globulin (PEP) Albumin/Globulin (PEP) Lkypz-3-Uaefzsnih Aekjg-6-Vkpblekkz Beta Globulins Gamma Globulins PEP Interpretation TSH 4.79 Urine Color Urine Appearance Urine pH Ur Specific Exchange Urine Protein Urine Glucose (UA) Urine Ketones Urine Occult Blood Urine Nitrate Urine Bilirubin Urine Urobilinogen Ur Leukocyte Esterase Urine RBC Urine WBC Ur Squamous Epith Cells Urine Bacteria Hyaline Casts Urine Mucus Ur Culture Indicated? TIMOTHY Interpretation 02/01/23 19:16 WBC RBC Hgb Hct POC Hct 60.0 H MCV MCH MCHC RDW Plt Count MPV Immature Gran % (Auto) Neut % (Auto) Lymph % (Auto) [place] % (Auto) Eos % (Auto) Baso % (Auto) Lymph # (Auto) [place] # (Auto) Eos # (Auto) Baso # (Auto) Immature Gran # Absolute Neutrophils POC Sodium 132 L Sodium POC Potassium 4.4 Potassium POC Chloride 97 Chloride Carbon Dioxide POC Total CO2 19.0 L Anion Gap POC Anion Gap 22.0 H POC BUN 44 H BUN Creatinine POC Creatinine 3.5 H GFR Calculation Glucose POC Glucose 125 H Calcium POC WB Ioniz Calcium 1.23 Phosphorus Magnesium Total Bilirubin Direct Bilirubin AST ALT Alkaline Phosphatase Total Creatine Kinase Total Protein Total Protein (PEP) Albumin Albumin (PEP) Globulin Globulin (PEP) Albumin/Globulin (PEP) Gissq-5-Oethwdwnf Glqiz-6-Qonhucvpg Beta Globulins Gamma Globulins PEP Interpretation TSH Urine Color Urine Appearance Urine pH Ur Specific Exchange Urine Protein Urine Glucose (UA) Urine Ketones Urine Occult Blood Urine Nitrate Urine Bilirubin Urine Urobilinogen Ur Leukocyte Esterase Urine RBC Urine WBC Ur Squamous Epith Cells Urine Bacteria Hyaline Casts Urine Mucus Ur Culture Indicated? TIMOTHY Interpretation A/P Narrative A/P Narrative: A: *JULIANA: Suspected ATN *Mild rhabdomyolysis: 2/2 likely heat exhaustion and dehydration *Hyponatremia: 2/2 above *Metabolic acidosis, anion gap: 2/2 above *Hypomagnesemia/hypophosphatemia: 2/2 above *Transaminitis: *Leukocytosis: Likely reactive P: -IVF -Monitor renal function/UOP/fluid balance -Nephrology following, SPEP/IPEP pending -Follow-up acidosis -Monitor CBC, trend electrolytes and replace as needed, f/u sodium levels -Monitor transaminitis -Follow-up CPK. -Avoid nephrotoxic medications - -ppx: SCDs and ambulation Time Spent With Patient Time: Total time spent is greater than 50% in coordination of care (as documented) at patient's floor/unit and/or counseling patient: Initial: Total time with patient: 75 - 90 minutes QUALITY VTE Deep Vein Thrombosis/Pulmonary Embolism Present on Admission: No
[2023-02-02] MEDS ORDERED: DOCUSATE SODIUM 100 MG CAPSULE PO SCH (09:00)
[2023-02-02] MEDS: 0.9 % SODIUM CHLORIDE 1,000 ML IV SCH (09:29)
[2023-02-02 09:32] LABS: Phosphorous 3.5 mg/dL (2.5-4.5); Uric Acid 10.2 mg/dL (2.5-8.0)
[2023-02-02 10:01] LABS: Creatine Kinase 2316 U/L (24-195)
[2023-02-02 10:01] LABS: Hepatitis A Antibody IgM Non-Reactive (Non-Reactive); Hepatitis B Surface Antigen Negative (Negative); Hepatitis C Virus Antibody Non-Reactive (Non-Reactive)
--- NOTE | 2023-02-02 10:48 | Discharge Summary ---
Discharge Provider Provider IMPORTANT FOLLOW-UP INFORMATION FOR PCP: Patient information: Note initiated : 02/02/23 at 10:46 am Service Date, if different from initiated Date: [] Patient: Doyle Harvey 27 y/o M admitted on 02/01/23 for nausea, vomiting. Chief Complaint: [] Date of admission: 02/01/23 23:00 Discharge date: 02/02/23 Primary care physician: Octavio Franks PA-C Consults: 02/01/23 Consult to Physician [CONS] Stat Comment: Consulting Provider: Fabián Rosado Reason For Exam: Physician to Consult Consult to Physician [CONS] Stat Comment: Consulting Provider: Damian Murphy Reason For Exam: Physician to Consult COURSE Hospital Course Hospital course: History of present illness: Mr. Harvey is a 27 year old M Presents the ED with nausea vomiting and decreased urine output and muscle cramping since the day prior to admission. Came here from minor care. Patient unable to keep any fluids down for the past several days. 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 Also have some abdominal pain from the nausea vomiting. No bloody emesis. Work-up in the ED ED revealed acute kidney injury. Appeared to be dehydrated. CT imaging of the abdomen pelvis showed no acute pathology. He had a leukocytosis of 20,000 without suspected to be reactive as there is no source of infection found. Creatinine was 3.4 and nephrology was consulted. Also had a mild metabolic acidosis. With anion gap. He had elevated phosphorus and magnesium. Transaminitis. Elevated CPK at 1547. Nausea better this morning. Pending follow-up labs including CPK. Patient responding quicker than expected to therapy. f/u Renal function much improved. CPK now downtrending. Patient desiring to leave today. A: *JULIANA: Suspected ATN/Rhabdo *Mild rhabdomyolysis: 2/2 likely heat exhaustion and dehydration *Hyponatremia: 2/2 above *Metabolic acidosis, anion gap: 2/2 above *Hypomagnesemia/hypophosphatemia: 2/2 above *Transaminitis: *Leukocytosis: Likely reactive P: -adequate oral hydration Discharge diagnosis: JULIANA rhabdomyolysis hyponatremia metabolic acidosis e lectrolyte disturbance Time Spent with Patient Time attestation: Total time spent providing and/or coordinating discharge services: Time spent: Greater than 30 minutes EXAM Constitutional Vitals: Temp Pulse Resp BP Pulse Ox O2 Del Method O2 Flow Rate 97.6 F 83 23 H 138/88 98 Room Air 0 02/02/23 08:01 02/02/23 10:01 02/02/23 10:01 02/02/23 10:01 02/02/23 10:01 02/02/23 08:00 02/01/23 23:31 Discharge Data Data Completed and Pending Labs on day of discharge: Labs from last 24 hours 02/02/23 02/02/23 02/02/23 08:03 08:02 06:42 WBC RBC Hgb Hct POC Hct MCV MCH MCHC RDW Plt Count MPV Immature Gran % (Auto) Neut % (Auto) Lymph % (Auto) [place] % (Auto) Eos % (Auto) Baso % (Auto) Lymph # (Auto) [place] # (Auto) Eos # (Auto) Baso # (Auto) Immature Gran # Absolute Neutrophils POC Sodium Sodium POC Potassium Potassium POC Chloride Chloride Carbon Dioxide POC Total CO2 Anion Gap POC Anion Gap POC BUN BUN Creatinine POC Creatinine GFR Calculation Glucose POC Glucose Uric Acid 10.2 H Calcium POC WB Ioniz Calcium Phosphorus 3.5 Magnesium 2.3 Total Bilirubin Direct Bilirubin AST ALT Alkaline Phosphatase Total Creatine Kinase 2316 H Total Protein Total Protein (PEP) Albumin Albumin (PEP) Globulin Globulin (PEP) Albumin/Globulin (PEP) Kgrkz-3-Stfytwbav Wdewu-1-Uidwxdlip Beta Globulins Gamma Globulins PEP Interpretation TSH Urine Color Urine Appearance Urine pH Ur Specific [place] Urine Protein Urine Glucose (UA) Urine Ketones Urine Occult Blood Urine Nitrate Urine Bilirubin Urine Urobilinogen Ur Leukocyte Esterase Urine RBC Urine WBC Ur Squamous Epith Cells Urine Bacteria Hyaline Casts Urine Mucus Ur Culture Indicated? TIMOTHY Interpretation Pending Hepatitis A IgM Ab Non-reactive Hep Bs Antigen Negative Hep B Core IgM Ab Non-reactive Hepatitis C Antibody Non-reactive 02/02/23 02/02/23 02/02/23 06:42 05:12 05:12 WBC 12.9 H RBC 5.03 Hgb 16.0 Hct 44.6 POC Hct MCV 88.7 MCH 31.8 MCHC 35.9 RDW 12.5 Plt Count 297 MPV 9.6 Immature Gran % (Auto) 0.4 Neut % (Auto) 73.1 Lymph % (Auto) 14.5 L [place] % (Auto) 11.1 Eos % (Auto) 0.5 Baso % (Auto) 0.4 Lymph # (Auto) 1.87 [place] # (Auto) 1.43 H Eos # (Auto) 0.06 Baso # (Auto) 0.05 Immature Gran # 0.05 Absolute Neutrophils 9.48 H POC Sodium Sodium 134 POC Potassium Potassium 3.6 POC Chloride Chloride 99 Carbon Dioxide 20 L POC Total CO2 Anion Gap 15.0 POC Anion Gap POC BUN BUN 24 H Creatinine 1.1 POC Creatinine GFR Calculation 90 Glucose 116 H POC Glucose Uric Acid Calcium 9.3 POC WB Ioniz Calcium Phosphorus Magnesium Total Bilirubin Direct Bilirubin AST ALT Alkaline Phosphatase Total Creatine Kinase Total Protein Total Protein (PEP) Pending Albumin Albumin (PEP) Pending Globulin Globulin (PEP) Pending Albumin/Globulin (PEP) Pending Qdltx-7-Aderuaubt Pending Gnhdd-0-Dthskpurn Pending Beta Globulins Pending Gamma Globulins Pending PEP Interpretation Pending TSH Urine Color Urine Appearance Urine pH Ur Specific [place] Urine Protein Urine Glucose (UA) Urine Ketones Urine Occult Blood Urine Nitrate Urine Bilirubin Urine Urobilinogen Ur Leukocyte Esterase Urine RBC Urine WBC Ur Squamous Epith Cells Urine Bacteria Hyaline Casts Urine Mucus Ur Culture Indicated? TIMOTHY Interpretation Hepatitis A IgM Ab Hep Bs Antigen Hep B Core IgM Ab Hepatitis C Antibody 02/01/23 02/01/23 02/01/23 20:58 19:42 19:42 WBC RBC Hgb Hct POC Hct MCV MCH MCHC RDW Plt Count MPV Immature Gran % (Auto) Neut % (Auto) Lymph % (Auto) [place] % (Auto) Eos % (Auto) Baso % (Auto) Lymph # (Auto) [place] # (Auto) Eos # (Auto) Baso # (Auto) Immature Gran # Absolute Neutrophils POC Sodium Sodium POC Potassium Potassium POC Chloride Chloride Carbon Dioxide POC Total CO2 Anion Gap POC Anion Gap POC BUN BUN Creatinine POC Creatinine GFR Calculation Glucose POC Glucose Uric Acid Calcium POC WB Ioniz Calcium Phosphorus 6.1 H* Magnesium 2.8 H Total Bilirubin Direct Bilirubin AST ALT Alkaline Phosphatase Total Creatine Kinase 1547 H Total Protein Total Protein (PEP) Albumin Albumin (PEP) Globulin Globulin (PEP) Albumin/Globulin (PEP) Whdsz-5-Ecczathrh Wzlbk-1-Jxmcptphh Beta Globulins Gamma Globulins PEP Interpretation TSH 4.79 Urine Color Tia Urine Appearance Cloudy A Urine pH 5.0 Ur Specific [place] 1.019 Urine Protein 100 A Urine Glucose (UA) Negative Urine Ketones 80 A Urine Occult Blood 0.20 Urine Nitrate Negative Urine Bilirubin Negative Urine Urobilinogen Negative Ur Leukocyte Esterase Negative Urine RBC 1 Urine WBC 10 H Ur Squamous Epith Cells 0 Urine Bacteria None Hyaline Casts 498 H Urine Mucus Many A Ur Culture Indicated? yes TIMOTHY Interpretation Hepatitis A IgM Ab Hep Bs Antigen Hep B Core IgM Ab Hepatitis C Antibody 02/01/23 02/01/23 02/01/23 19:42 19:42 19:16 WBC 20.1 H RBC 6.40 H Hgb 20.3 H Hct 54.1 H POC Hct 60.0 H MCV 84.5 MCH 31.7 MCHC 37.5 H RDW 12.3 Plt Count 367 MPV 10.1 Immature Gran % (Auto) 0.9 H Neut % (Auto) 89.3 H Lymph % (Auto) 4.9 L [place] % (Auto) 4.5 Eos % (Auto) 0 Baso % (Auto) 0.4 Lymph # (Auto) 0.99 L [place] # (Auto) 0.91 H Eos # (Auto) 0.01 Baso # (Auto) 0.09 Immature Gran # 0.19 H Absolute Neutrophils 17.88 H POC Sodium 132 L Sodium POC Potassium 4.4 Potassium POC Chloride 97 Chloride Carbon Dioxide POC Total CO2 19.0 L Anion Gap POC Anion Gap 22.0 H POC BUN 44 H BUN Creatinine POC Creatinine 3.5 H GFR Calculation Glucose POC Glucose 125 H Uric Acid Calcium POC WB Ioniz Calcium 1.23 Phosphorus Magnesium Total Bilirubin 1.3 H Direct Bilirubin 0.3 H AST 97 H ALT 114 H Alkaline Phosphatase 120 H Total Creatine Kinase Total Protein 10.2 H Total Protein (PEP) Albumin 6.0 H Albumin (PEP) Globulin 4.2 H Globulin (PEP) Albumin/Globulin (PEP) Pcpzy-8-Fssgjukdg Arjjy-9-Wehqmeieb Beta Globulins Gamma Globulins PEP Interpretation TSH Urine Color Urine Appearance Urine pH Ur Specific [place] Urine Protein Urine Glucose (UA) Urine Ketones Urine Occult Blood Urine Nitrate Urine Bilirubin Urine Urobilinogen Ur Leukocyte Esterase Urine RBC Urine WBC Ur Squamous Epith Cells Urine Bacteria Hyaline Casts Urine Mucus Ur Culture Indicated? TIMOTHY Interpretation Hepatitis A IgM Ab Hep Bs Antigen Hep B Core IgM Ab Hepatitis C Antibody Discharge Plan Patient/Caregiver Discharge Instructions Activity: increase activity as tolerated Diet: Regular Diet Instructions: Dehydration (GEN), Acute Kidney Injury (GEN) Activity Restrictions/Additional Instructions: Increase activity as tolerated, continue a regular diet. Follow up with your Primary Care Physician as scheduled. Take your insurance card and a photo ID with you to this visit. This discharge packet is provided to you to help keep you informed about your care. We want to ensure you get everything you need when you go home. You will also be receiving a call from us in a few days to follow up with you and see how you are doing since your discharge. This gives us a chance to listen to any concerns you maybe experiencing since you were discharged or any additional needs you may have, as well as providing us feedback on your care experience. We strive to always provide excellent care and thank you for your feedback and for choosing [facility]. Prescriptions: No Action No Known Home Meds Follow Up Plan Follow up with: Octavio Franks PA-C [Primary Care Provider] - 02/09/23 4:00 pm (Please arrive 15 minutes early for paperwork. Please take your insurance card and a photo ID with you to this appointment.) Patient Disposition: Home, Self-Care Prognosis: Good Overall status at discharge: patient is progressing back to baseline Discharge Orders: Discharge Order (Routine); Ordered 02/02/23 Ordered By: Fabián WEBER VTE Deep Vein Thrombosis/Pulmonary Embolism Present on Admission: No
[2023-02-02 16:54] LABS: Creatine Kinase 1989 U/L (24-195)
[2023-02-02 17:03] LABS: Blood Urea Nitrogen 16 mg/dL (6-20); Calcium 8.9 mg/dL (8.6-10.4); Carbon Dioxide 24 mmol/L (22-30); Chloride 99 mmol/L (96-108); Glomerular Filtration Rate 120; Glucose 122 mg/dL (70-105)
[2023-02-04 13:58] LABS: Albumin PEP 3.44 gm/dL (3.10-4.70); Albumin/Globulin Ratio PEP 1.1 RATIO (0.9-1.7); Alpha-1-Globulins 0.22 gm/dL (0.10-0.50); Alpha-2-Globulins 0.68 gm/dL (0.40-1.20); Beta Globulins 1.18 gm/dL (0.60-1.20); Gamma Globulins 1.18 gm/dL (0.50-1.70); Globulin PEP 3.3 gm/dL (2.4-3.6); Total Protein PEP 6.7 gm/dL (5.9-8.4)
== END 2023-02-02 18:28 | disposition home or self-care (01) | DRG 922 ==
LOC: ED 19:04 → ICU 23:00
PROVIDERS: ADMIT Internal Medicine; ATTEND Internal Medicine